=== PATIENT | male | born 1945 | race Hispanic/Latino ===

== ENCOUNTER → 2019-08-31 | Outpatient (CLI) | payer OTHER | END | disposition home or self-care (01) | LOC: SHCH 15:49 | PROVIDERS: ATTEND Internal Medicine Cardiovascular Disease | DX: I35.1 Nonrheumatic aortic (valve) insufficiency (principal); I25.10 Atherosclerotic heart disease of native coronary artery without angina pectoris | CPT/HCPCS: 93306 ==

== ENCOUNTER → 2020-12-07 | Outpatient (CLI) | payer OTHER | END | disposition home or self-care (01) | LOC: SHCH 10:51 | PROVIDERS: ATTEND Internal Medicine Cardiovascular Disease | DX: I35.1 Nonrheumatic aortic (valve) insufficiency (principal) | CPT/HCPCS: 93306; 93356 ==

== ENCOUNTER → 2024-10-06 | Outpatient (CLI) | payer OTHER ==
[2024-10-06 16:21] LABS: POTASSIUM 4.6 mmol/L (3.5-5.1)
== END | disposition home or self-care (01) ==
LOC: LAB 15:34
PROVIDERS: ATTEND Internal Medicine Cardiovascular Disease
DX: I10 Essential (primary) hypertension (principal); R06.00 Dyspnea, unspecified
CPT/HCPCS: 36415; 80048; 83880

== ENCOUNTER → 2024-10-13 | Outpatient (CLI) | payer OTHER ==
[2024-10-13] MEDS: REGADENOSON 0.4 MG/5 ML PF SYG IVP ONE (10:11)
--- NOTE | 2024-10-17 09:00 | HMCSR ---
APPROVED REPORT Height: 5 ft 5in Weight: 145 lbs TEST INDICATIONS CHEST PAIN UNSPECIFIED The imaging protocol used to acquire images was Rest Tc-99m/stress Tc-99m 1 day Consent: The procedure was explained and understood by the patient. Informerd consent was witnessed Kelsea Chester RN First, low dose rest was performed then high dose stress. RESTING DATA: The resting ekg shows: NSR Rest SPECT myocardial perfusion imaging was performed in supine position 65 minutes following the int ravenous injection of 12.9 mCi of Tc-99 Sestamibi. Time of rest injection: 08:44: Date: 10/13/2024 Time of rest imagin:49: Date: 10/13/2024 PHARMACOLOGIC STRESS: Pharmacologic stress test was performed by injecting regadenoson 0.4 mg IV push followed by the intra venous injection of 31.1 mCi of Tc-99 Sestamibi. Time of stress injection: 10:20: Date: 10/13/2024 Time of stress imagin:42: Date: 10/13/2024 Heart Rate at time of stress injection: 46 bpm. Gated Stress SPECT was performed 82 minutes after stress injection. The images were gated to evaluate regional wall motion and calculate left ventricular ejection fracti on. STRESS DETAILS Reason for Termination: Infusion complete Stress Symptoms: Dyspnea Max HR Achieved: 51 bpm % of APMHR Achieved: 36 Max Blood Pressure: 153/63 mmHg Stress ECG: NSR Conclusion No ischemia Anterior and inferior infarct LV ejecton fraction 56% Normal LV wall motion Normal LV size at rest and stress No increased lung uptake There may be more viability than indicated by the spect images
== END | disposition home or self-care (01) ==
LOC: SHCH 08:13
PROVIDERS: ATTEND Internal Medicine Cardiovascular Disease
DX: R07.9 Chest pain, unspecified (principal)
CPT/HCPCS: 78452; 93017; J2785; A9500 ×2

== ENCOUNTER → 2024-10-17 | Outpatient (CLI) | payer OTHER ==
--- NOTE | 2024-10-18 08:39 | HMCSR ---
APPROVED REPORT EXAM: Two-dimensional and M-mode echocardiogram with Doppler and color Doppler. INDICATION ICD: R06.00 Dyspnea 2D Dimensions IVSd0.5 (0.7-1.1cm)LVEF(%)48.1 (>50%)LVED Vol(simp.)181.0 mL LVDd5.7 (3.8-5.6cm)FS(%)25 %LVES Vol(simp.)89.2 mL PWd0.6 (0.7-1.1cm)LA (2D)5.0 (1.6-4.0cm)LVEF(%, simp.)51 % IVSs0.8 cmAo Root(2D)2.8 (2.0-3.7cm)LA ESV INDEX (4CH)49.40 mL/m2 LVDs4.3 (2.5-4.0cm)LVOT diam2.5 (1.8-2.4cm)LA ESV INDEX (2CH)52.40 mL/m2 PWs1.0 cmLA ESV INDEX (BP)54.60 mL/m2 M-Mode Dimensions EPSS1.4 cm LA (MM)5.3 (1.6-4.0cm) Ao Root(MM)3.1 (2.0-3.7cm) Aortic Valve AoV VTI0.6 mAo Mean GR12.0 mmHgLVOT VTI0.15 m MELISSA (VMAX)1.3 cm2Al P1/2T510 msAVA (VTI) 1.3 cm2 Mitral Valve MV E Fglu387.3 cm/sDECEL Dile290 ms MV A Vmax39.3 cm/sP 1/2 T79 ms E/A ratio2.6MVA (PHT)2.8 cm2 MR Max PG16 mmHg TDI E/E' Ipwsgh80.1E/E' Dcftxhp53.8 Medial E' Peak V4.90 cm/sLateral E' Peak V8.10 cm/s Pulmonary Valve PV VTI0.32 mPV Mean GR4 mmHg Tricuspid Valve RAP (EST) 8 mmHgRVSP8.0 mmHg Left Ventricle The left ventricle is moderately dilated. Spontaneous contrast noted in left ventricle. Paradoxical s eptal motion consistent with conduction abnormality. Global thinning of the left ventricular neumann. T he Ejection Fraction is 45-50%. Stage III diastolic dysfunction. Right Ventricle The right ventricle is normal size. Right ventricular systolic function is mildly reduced. Atria The left atrium is severely dilated. LASVI 55mL/m. The right atrium is borderline dilated. Aortic Valve Aortic valve leaflets are thickened and calcified. Mild aortic regurgitation is present. There is no aortic valvular stenosis. Mitral Valve The mitral valve is mildly thickened. Anterior mitral valve leaflet appears mildly prolapsed. There i s trace of mitral valve regurgitation noted. There is no mitral valve stenosis. Tricuspid Valve The tricuspid valve leaflets appear normal. There is no tricuspid valve regurgitation noted. Pulmonic Valve The pulmonary valve is normal in structure and function. There is no pulmonic valvular regurgitation. Great Vessels The aortic root is normal in size. IVC is not well visualized. Pericardium No pericardial effusion. Other Information Quality : Adequate Conclusion The left ventricle is moderately dilated. Spontaneous contrast noted in left ventricle. The Ejection Fraction is 45-50%. Paradoxical septal motion consistent with conduction abnormality. Aortic valve leaflets are thickened and calcified. Mild aortic regurgitation is present. There is no aortic valvular stenosis.
== END | disposition home or self-care (01) ==
LOC: RAH 12:32
PROVIDERS: ATTEND Internal Medicine Cardiovascular Disease
DX: I08.0 Rheumatic disorders of both mitral and aortic valves (principal); R06.00 Dyspnea, unspecified
CPT/HCPCS: 93306

== ENCOUNTER → 2024-11-14 | Outpatient (CLI) | payer OTHER ==
[2024-11-14 12:45] LABS: ALBUMIN 3.7 g/dL (3.5-5.0); BILIRUBIN,TOTAL 0.4 mg/dL (0.2-1.0); POTASSIUM 4.6 mmol/L (3.5-5.1); TOTAL PROTEIN, SERUM 7.8 g/dL (6.0-8.3)
== END | disposition home or self-care (01) ==
LOC: LAB 09:04
PROVIDERS: ATTEND Internal Medicine Cardiovascular Disease
DX: I25.708 Atherosclerosis of coronary artery bypass graft(s), unspecified, with other forms of angina pectoris (principal)
CPT/HCPCS: 36415; 80053